=== PATIENT | male | born 1935 | race Caucasian/White ===

== ENCOUNTER 2017-04-30 03:19 | Observation (INO) | payer MEDICARE, BC ==
[~2017-04-30] VITALS: Ht 180.3 cm; Wt 78.0 kg
[2017-04-30 03:22] VITALS: BP 155/74; PULSE 78; RESP 16; TEMP 99.8; O2SAT 96
[2017-04-30 04:09] LABS: HEMATOCRIT 43.6 % (39.0-51.0); MEAN CELL VOLUME 93.1 FL (80.0-100.0); MEAN CORPUSCULAR HEMOGLOBIN 32.1 PG (27.0-34.0); MEAN CORPUSCULAR HGB CONC 34.5 % (32.0-36.0); PLATELET COUNT 183 TH/MM3 (150-450); RED BLOOD COUNT 4.69 MIL/MM3 (4.50-5.90); RED CELL DISTRIBUTION WIDTH 13.2 % (11.6-17.2); REVIEW FLAG FINAL; WHITE BLOOD COUNT 12.8 TH/MM3 (4.0-11.0)
[2017-04-30 04:24] LABS: APTT (PATIENT) 24.6 SEC (24.3-30.1); PROTHROMBIN TIME - PATIENT 11.3 SEC (9.8-11.6)
[2017-04-30 04:48] LABS: ANION GAP 7 MEQ/L (5-15); BICARBONATE 25.2 MEQ/L (21.0-32.0); BLOOD UREA NITROGEN 21 MG/DL (7-18); CHLORIDE 105 MEQ/L (98-107); GLOMERULAR FILTRATION RATE 69 ML/MIN (>89); POTASSIUM 6.1 MEQ/L (3.5-5.1); SODIUM (NA) 137 MEQ/L (136-145)
--- NOTE | 2017-04-30 05:34 | RADRPT ---
EXAM DATE/TIME: 04/30/2017 04:53 [facility] COMPARISON: No previous studies available for comparison. INDICATIONS : Pain. MEDICAL HISTORY : None. SURGICAL HISTORY : None. ENCOUNTER: Initial ACUITY: 1 day PAIN SCORE: 6/10 LOCATION: Bilateral Abdomen FINDINGS: Supine and upright views of the abdomen were performed. The abdominal bowel gas pattern is normal. No air fluid levels are seen. No abnormal masses, calcifications, or organomegaly is seen. The visu alized lower lungs are clear. No evidence of free intraperitoneal gas. The osseous structures are u nremarkable. CONCLUSION: Unremarkable abdomen. Paul Taylor MD on April 30, 2017 at 5:31 Board Certified Radiologist. This report was verified electronically.
[2017-04-30 05:43] LABS: CREATINE KINASE 183 U/L (39-308); MAGNESIUM 2.2 MG/DL (1.5-2.5)
--- NOTE | 2017-04-30 05:48 | PD ---
HPI Chief Complaint: GI Complaint Time Seen by Provider: 04:58 Travel History International Travel<30 days: No Contact w/Intl Traveler<30days: No Traveled to known affect area: No History of Present Illness HPI This is a 81-year-old male patient past medical history of pituitary disorder and pancreatitis who presents with a complaint of recurrent episodes of diarrhea fever and chills and subsequently the development of left arm numbness and pain H and noticed feeling very lightheaded and warm and feeling like he was going to . Patient states he ate some raw broccoli prior to the onset of symptoms. Now in the ER patient complains of a moderately severe headache that has been gradual in onset. PFSH Past Medical History Diabetes: Yes (DIET CONTROLLED) Patient Takes Glucophage: No Medical other: Yes (ADDISONS) Past Surgical History Appendectomy: Yes Social History Alcohol Use: No Tobacco Use: No Substance Use: No Allergies-Medications (Allergen,Severity, Reaction): Coded Allergies: Levaquin (Verified Allergy, Severe, Nausea/Vomiting, 04/30/17) Reported Meds & Prescriptions Reported Meds & Active Scripts Active Reported Hydrocortisone 10 Mg Tab 10 Mg PO HS Take with food to decrease GI upset Hydrocortisone 10 Mg Tab 10 Mg PO AC LUNCH Take with food to decrease GI upset Creon (Pancrelipase) Unknown Strength Cap Unknown Dose PO TIDPC Synthroid (Levothyroxine Sodium) 112 Mcg Tab 112 Mcg PO DAILY Welchol (Colesevelam HCl) 625 Mg Tab 2 Tab PO TID Hydrocortisone 20 Mg Tab 20 Mg PO DAILY Take with food to decrease GI upset Review of Systems ROS Limitations: Clinical Condition General / Constitutional: No: Fever, Chills, Weight Gain, Weight Loss, Other Eyes: No: Diploplia, Blurred Vision, Photophobia, Drainage, Redness, Foreign Body Sensation, Pain, Tearing, Blind Spots, Visual changes, Blindness, Other HENT: No: Headaches, Vertigo, Lightheadedness, Sore Throat, Rhinitis, Rhinorrhea, Congestion, Nosebleed, Neck Stiffness, Neck Pain, Masses, Gingival Bleeding, Dental Difficulties, Ear Discharge, Earache, Other Cardiovascular: No: Chest Pain or Discomfort, Palpitations, Irregular Rhythm, Tachycardia, Diaphoresis, Syncope, Dyspnea on exertion, Varicosities, Edema, Cyanosis, Varicosities, Phlebitis, Claudication, Other Respiratory: No: Cough, Shortness of Breath, Wheezing, Sneezing, Orthopnea, Hemoptysis, Stridor, Night Sweats, Pleuritic Pain, Other Gastrointestinal: Positive: Nausea, Diarrhea, No: Vomiting, Abdominal Pain, Hematemesis, Hematochezia, Constipation, Changes in Bowel Habits, Indigestion, Dysphagia, Loss of Appetite, Other Musculoskeletal: Positive: Other (patient has body aches), No: Myalgias, Arthralgias, Limited ROM, Weakness, Cramping, Edema, Pain, Atrophy Skin: No Rash, No Itching, No Dryness, No Lumps, No Hives, No Change in Pigmentation, No Change in nails, No Alopecia, No Lesions, No Breast Lumps, No Breast Tenderness, No Breast Swelling, No Other Neurologic: Positive: Weakness, Other (lightheaded), No: Dizziness, Syncope, Focal Abnormalities, Coordination Problem, Tremor, Ataxia, Headache, Change in Mentation, Slurred Speech, Paresthesia, Incontinence, Seizures, Sensory Disturbance Psychiatric: No: Anxiety, Depression, Suicidal Ideations, Disorder of Thought, Mood Disorder, Substance Abuse, Homicidal Ideation, Other Data Data Last Documented VS Vital Signs Date Time Temp Pulse Resp B/P Pulse Ox O2 Delivery O2 Flow Rate FiO2 04/30/17 07:24 68 16 105/61 99 Room Air 04/30/17 03:22 99.8 Orders Cbc No Diff, Includes Plts (04/30/17 03:54) Basic Metabolic Panel (Bmp) (04/30/17 03:54) Coag Profile (04/30/17 03:54) Abdomen, Flat & Upright (04/30/17 ) Electrocardiogram (04/30/17 ) Basic Metabolic Panel (Bmp) (04/30/17 05:01) Ckmb (Isoenzyme) Profile (04/30/17 03:50) Magnesium (Mg) (04/30/17 03:50) Troponin I (04/30/17 03:50) CKMB (04/30/17 03:50) CKMB% (04/30/17 03:50) Metoclopramide Inj (Reglan Inj) (04/30/17 06:45) Ondansetron Inj (Zofran Inj) (04/30/17 06:45) Ct Brain W/O Iv Contrast(Rout) (04/30/17 ) Chest, Single Ap (04/30/17 ) Admit Order (Ed Use Only) (04/30/17 08:00) Labs Laboratory Tests Test 04/30/17 04/30/17 03:50 05:35 White Blood Count 12.8 TH/MM3 Red Blood Count 4.69 MIL/MM3 Hemoglobin 15.0 GM/DL Hematocrit 43.6 % Mean Corpuscular Volume 93.1 FL Mean Corpuscular Hemoglobin 32.1 PG Mean Corpuscular Hemoglobin 34.5 % Concent Red Cell Distribution Width 13.2 % Platelet Count 183 TH/MM3 Mean Platelet Volume 8.0 FL Prothrombin Time 11.3 SEC Prothromb Time International 1.0 RATIO Ratio Activated Partial 24.6 SEC Thromboplast Time Sodium Level 137 MEQ/L 137 MEQ/L Potassium Level 6.1 MEQ/L 4.4 MEQ/L Chloride Level 105 MEQ/L 105 MEQ/L Carbon Dioxide Level 25.2 MEQ/L 23.6 MEQ/L Anion Gap 7 MEQ/L 8 MEQ/L Blood Urea Nitrogen 21 MG/DL 21 MG/DL Creatinine 1.04 MG/DL 1.06 MG/DL Estimat Glomerular Filtration 69 ML/MIN 67 ML/MIN Rate Random Glucose 85 MG/DL 99 MG/DL Calcium Level 8.8 MG/DL 9.1 MG/DL Magnesium Level 2.2 MG/DL Total Creatine Kinase 183 U/L Creatine Kinase MB 0.8 NG/ML Troponin I LESS THAN 0.02 NG/ML MDM Medical Decision Making Medical Screen Exam Complete: Yes Emergency Medical Condition: Yes Interpretation(s) EKG shows sinus rhythm no acute ST changes Differential Diagnosis Differential diagnosis atypical chest acute coronary acute enteritis acute cephalgia Narrative Course This is a 81-year-old male patient who ate some broccoli that was" subcutaneous and then developed recurrent episodes of diarrhea she felt very weak and lightheaded and began experience left arm pain felt like his heart was going to stop EKG shows a nonischemic pattern opponent, 1 is negative x-ray is unremarkable and complains of moderately severe headache of gradual onset ET of the brain is negative Initial potassium reported as 6.2 on about a hemolyzed specimen KG showed no evidence of hyperkalemia E potassium was 4.4 which is within normal range Patient has a history of hyperlipidemia and diet controlled diabetes and he is a male for light of the multiple cardiac risk factors and left arm pain and feeling of doom with transfer patient over to the chest pain center for serial troponins and possible stress test. patient shaky and has not taken morning meds which includes hydrocortisone communicated patient to staff in chest pain center. Diagnosis Primary Impression: acute enteritis Additional Impressions: acute cephalgia resolved chest pain Admitting Information Admitting Physician Requests: Observation Condition: Stable Airam Bright MD Apr 30, 2017 05:47
[2017-04-30 05:59] LABS: CKMB 0.8 NG/ML (0.5-3.6)
[2017-04-30 06:21] LABS: BICARBONATE 23.6 MEQ/L (21.0-32.0); POTASSIUM 4.4 MEQ/L (3.5-5.1)
[2017-04-30] MEDS ORDERED: METOCLOPRAMIDE HCL 10 MG/2 ML VIAL IV PUSH ONE (06:45)
[2017-04-30] MEDS ORDERED: ONDANSETRON HCL 4 MG/2 ML VIAL IV PUSH ONE (06:45)
--- NOTE | 2017-04-30 07:12 | RADRPT ---
EXAM DATE/TIME: 04/30/2017 06:39 [facility] COMPARISON: No previous studies available for comparison. INDICATIONS : Chest pain & headache. MEDICAL HISTORY : Diabetic. SURGICAL HISTORY : Appendectomy. Left rotator cuff. Right leg. ENCOUNTER: Initial ACUITY: 1 day PAIN SCORE: 7/10 LOCATION: chest FINDINGS: A single view of the chest demonstrates the lungs to be symmetrically aerated without evidence of mas s, infiltrate or effusion. The cardiomediastinal contours are unremarkable. Osseous structures are intact. CONCLUSION: Normal examination. Christopher Hector MD on April 30, 2017 at 7:09 Board Certified Radiologist. This report was verified electronically.
[2017-04-30 07:24] VITALS: BP 105/61; PULSE 68; RESP 16; O2SAT 99
--- NOTE | 2017-04-30 08:02 | RADRPT ---
EXAM DATE/TIME: 04/30/2017 07:41 [facility] COMPARISON: No previous studies available for comparison. INDICATIONS : Headache after vomiting for several hours. RADIATION DOSE: 34.73 CTDIvol (mGy) MEDICAL HISTORY : Diabetes mellitus type 2. SURGICAL HISTORY : None. ENCOUNTER: Initial ACUITY: 1 day PAIN SCALE: 8/10 LOCATION: Bilateral cranial TECHNIQUE: Multiple contiguous axial images were obtained of the head. Using automated exposure control and adj ustment of the mA and/or kV according to patient size, radiation dose was kept as low as reasonably a chievable to obtain optimal diagnostic quality images. DICOM format image data is available electro nically for review and comparison. FINDINGS: CEREBRUM: There is mild cerebral atrophy. Ventricles are normal in size. There is mild periventricular white ma tter low attenuation. No evidence of midline shift, mass lesion, hemorrhage or acute infarction. No extra-axial fluid collections are seen. POSTERIOR FOSSA: The cerebellum and brainstem demonstrate no acute finding. The 4th ventricle is midline. The cerebe llopontine angle is unremarkable. EXTRACRANIAL: Visualized sinuses are clear. SKULL: The calvaria is intact. No evidence of skull fracture. CONCLUSION: 1. No acute intracranial abnormality is identified. 2. Nonacute and age-appropriate findings include mild cerebral atrophy and mild periventricular white matter low attenuation. Christ German MD on April 30, 2017 at 7:57 Board Certified Radiologist. This report was verified electronically.
[2017-04-30] MEDS ORDERED: HYDR10TA65 PO ×2 (08:43)
[2017-04-30] MEDS ORDERED: SYNT112T PO (08:43)
[2017-04-30] MEDS ORDERED: CREO3000 PO (08:43)
[2017-04-30] MEDS ORDERED: HYDR20TA PO (08:43)
[2017-04-30] MEDS ORDERED: WELC625T2 PO (08:43)
[2017-04-30] MEDS ORDERED: HYDROCORTISONE 10 MG TAB PO ONE ×2 (08:45)
[2017-04-30 09:40] VITALS: BP 121/59; PULSE 85; RESP 17; O2SAT 98
--- NOTE | 2017-04-30 17:37 | EKG ---
Date Performed: 04/30/2017 Time Performed: 05:31:06 PTAGE: 81 years EKG: Sinus rhythm WITH FIRST DEGREE AV BLOCK ABNORMAL ECG NO PREVIOUS TRACING DOCTOR: Lexie Carrizales Interpretating Date/Time 04/30/2017 17:34:42
== END 2017-04-30 09:55 | disposition left against medical advice (07) ==
LOC: NEPC 03:19 → NEDA 08:02
PROVIDERS: ADMIT Internal Medicine Interventional Cardiology; ATTEND Internal Medicine Interventional Cardiology
DX: K52.9 Noninfective gastroenteritis and colitis, unspecified (principal); R07.9 Chest pain, unspecified; R51 Headache; E11.9 Type 2 diabetes mellitus without complications; I44.0 Atrioventricular block, first degree; E78.5 Hyperlipidemia, unspecified
CPT/HCPCS: 70450; 71010; 74020; 80048; 82550; 82552; 83735; 84484; 85027; 85610; 85730; 93005; 96374; 96375; 99285; G0378; J2405; J2765